=== PATIENT | male | born 1945 | race Caucasian/White ===

== ENCOUNTER → 2021-02-11 | Outpatient (CLI) | payer MEDICARE ==
[~2021-02-11] MED LIST: ATEN100 PO; CEPH500 PO; CLON.5 PO; DICL75ER PO; DILT120 PO; GLIM4 PO; LISI20 PO; METF500 PO; POTCHL20ER PO; TORSE20 PO
== END | disposition home or self-care (01) ==
LOC: LAB SHORT 09:55
DX: D22.4 Melanocytic nevi of scalp and neck (principal); L57.0 Actinic keratosis
CPT/HCPCS: 88305; 88312

== ENCOUNTER 2022-04-23 13:47 | Emergency (ER) | payer MEDICARE ==
[~2022-04-23] VITALS: Ht 180.3 cm; Wt 150.6 kg
[2022-04-23 16:02] LABS: BASOPHILS ABSOLUTE AUTO 0.03 K/mm3 (0.00-0.23); BASOPHILS PERCENT AUTO 1 % (0-2); EOSINOPHILS ABSOLUTE AUTO 0.09 K/mm3 (0.00-0.68); EOSINOPHILS PERCENT AUTO 1 % (0-6); Hematocrit 46.9 % (37.0-53.0); Hemoglobin 16.4 g/dL (13.5-17.5); IMMATURE GRAN ABSOLUTE AUTO 0.03 K/mm3 (0.00-0.10); IMMATURE GRAN PERCENT AUTO 1 % (0-1); LYMPHOCYTES ABSOLUTE AUTO 0.37 K/mm3 (0.84-5.20); LYMPHOCYTES PERCENT AUTO 6 % (21-46); MONOCYTES PERCENT AUTO 6 % (4-13); Mean Corpuscular Volume 91 fL (80-100); Mean Platelet Volume 9.8 fL (9.1-12.4); NEUTROPHILS ABSOLUTE AUTO 5.37 K/mm3 (1.96-9.15); NEUTROPHILS PERCENT AUTO 85 % (41-73); Platelet Count 199 K/mm3 (150-400); RDW Coefficient Variation 14.3 % (11.7-14.2); RDW Standard Deviation 48.5 fL (35.1-46.3); Red Blood Cell Count 5.13 M/mm3 (4.30-5.90); White Blood Cell Count 6.29 K/mm3 (4.00-11.30)
[2022-04-23 16:12] LABS: Albumin, Blood 2.5 g/dL (3.4-5.0); Albumin/Globulin Ratio 0.9 (0.8-1.8); Bilirubin, Total 0.7 mg/dL (0.1-1.0); Bun/Creatinine Ratio 19.4 (12.0-20.0); Calcium, Blood 8.2 mg/dL (8.5-10.1); Creatinine, Blood 0.83 mg/dL (0.60-1.20); Globulin, Blood 2.8 g/dL (2.2-4.0); Potassium, Blood 4.5 mmol/L (3.5-5.5); Total Protein, Blood 5.3 g/dL (6.4-8.2)
[2022-04-23] MEDS ORDERED: CYMBALTA20 M2 PO (19:36)
[2022-04-23] MEDS ORDERED: HYDCHL25 PO (19:37)
[2022-04-23] MEDS ORDERED: ATORVASTATIN CA20 MG PO (19:37)
== END 2022-04-23 19:40 | disposition home or self-care (01) ==
LOC: ER 13:47
PROVIDERS: Physician Assistant
DX: J90 Pleural effusion, not elsewhere classified (principal); I11.0 Hypertensive heart disease with heart failure; I50.9 Heart failure, unspecified; E11.9 Type 2 diabetes mellitus without complications; Z79.899 Other long term (current) drug therapy; Z79.84 Long term (current) use of oral hypoglycemic drugs; Z87.891 Personal history of nicotine dependence
CPT/HCPCS: 36415; 71046; 80053; 83880; 84484; 85025; 93005; 93010; 99284-25

== ENCOUNTER 2023-05-14 09:28 | Inpatient (IN) | payer MEDICARE ==
[2023-05-14] VITALS (8 sets, daily range): BP systolic 103–178; BP diastolic 56–129
[~2023-05-14] VITALS: Ht 180.3 cm; Wt 152.5 kg
[~2023-05-14 09:28] MED LIST changes: +ATORVASTATIN CA20 MG PO; +DULO30 PO; +HYDCHL25 PO
[2023-05-14] MEDS ORDERED: LOSARTAN POTASS25 M2 PO (10:24)
[2023-05-14] MEDS ORDERED: METOPROLOL TART5010 PO (10:24)
[2023-05-14 11:04] LABS: BASOPHILS ABSOLUTE AUTO 0.04 K/mm3 (0.00-0.23); BASOPHILS PERCENT AUTO 0 % (0-2); EOSINOPHILS PERCENT AUTO 0 % (0-6); Hematocrit 54.6 % (37.0-53.0); Hemoglobin 17.8 g/dL (13.5-17.5); IMMATURE GRAN ABSOLUTE AUTO 0.15 K/mm3 (0.00-0.10); IMMATURE GRAN PERCENT AUTO 1 % (0-1); LYMPHOCYTES ABSOLUTE AUTO 0.19 K/mm3 (0.84-5.20); LYMPHOCYTES PERCENT AUTO 1 % (21-46); MONOCYTES ABSOLUTE AUTO 0.48 K/mm3 (0.16-1.47); MONOCYTES PERCENT AUTO 4 % (4-13); Mean Corpuscular HGB 30.3 pg (26.0-34.0); Mean Corpuscular HGB Conc 32.6 g/dL (31.5-36.5); Mean Corpuscular Volume 93 fL (80-100); Mean Platelet Volume 9.4 fL (9.1-12.4); NEUTROPHILS ABSOLUTE AUTO 12.66 K/mm3 (1.96-9.15); NEUTROPHILS PERCENT AUTO 94 % (41-73); Platelet Count 320 K/mm3 (150-400); RDW Coefficient Variation 14.6 % (11.7-14.2); RDW Standard Deviation 50.3 fL (35.1-46.3); Red Blood Cell Count 5.87 M/mm3 (4.30-5.90); White Blood Cell Count 13.52 K/mm3 (4.00-11.30)
[2023-05-14 11:31] LABS: Albumin, Blood 2.3 g/dL (3.4-5.0); Albumin/Globulin Ratio 0.7 (0.8-1.8); Bilirubin, Total 0.7 mg/dL (0.1-1.0); Bun/Creatinine Ratio 39.4 (12.0-20.0); Calcium, Blood 8.6 mg/dL (8.5-10.1); Creatinine, Blood 0.76 mg/dL (0.60-1.20); Globulin, Blood 3.4 g/dL (2.2-4.0); Potassium, Blood 4.4 mmol/L (3.5-5.5); Total Protein, Blood 5.7 g/dL (6.4-8.2)
[2023-05-14 20:12] LABS: Influenza A, PCR NEGATIVE (NEGATIVE); Influenza B, PCR NEGATIVE (NEGATIVE); Resp Syncytial Virus, PCR NEGATIVE (NEGATIVE); SARS-Cov-2 (COVID-19) PCR, MMC NEGATIVE (NEGATIVE)
--- NOTE | 2023-05-14 20:48 | NUR ---
PHYSICIAN COMMUNICATION SPOKE WITH DR FARMER TO NOTIFY HER THAT THE PATIENT IS REQUIRING A POWER GLIDE IN ORDER TO BE ABLE TO OBTAIN LAB DRAWS PATIENT IS TOO EDEMATOUS FOR THE BARREL CENTERER TO DRAW HIM. INFORMED HER THAT THE PATIENT HAS SEVERE BACK PAIN WHEN LYING FLAT WHICH IS REQUIRED FOR THE PROCEDURE AND ASKED FOR ONE TIME MEDICATION TO HELP HIM BE MORE COMFORTABLE FOR IT. DR FARMER ORDERED A ONE TIME DOSE OF 50 MCG IV FENTANYL AND TO ADMINISTER ZOFRAN AND IF THE PATIENT IS STILL UNCOMFORTABLE ADMINISTER AN ADDITIONAL 25 MCG IV FENTANYL.
[2023-05-14 22:12] LABS: Base Excess Venous 3.7 mmol/L; Bicarbonate Venous 25.4 mmol/L (24.0-30.0); PCO2 Venous 68.8 mmHg (38-42); pH Blood Venous 7.26 (7.34-7.37)
--- NOTE | 2023-05-14 22:22 | NUR ---
PHYSICIAN COMMUNICATION CONTACTED DR FARMER TO NOTIFY HER THAT THE PH ON PATIENT'S VBG IS CRITICALLY LOW AND THAT HIS CO2 IS HIGH AT 68.8. RELAYED THAT THE RESPIRATORY THERAPIST RECOMMENDED PLACING THE PATIENT ON BIPAP AND DR FARMER AGREED. PATIENT BEING PLACED ON BIPAP NOW. WILL CONTINUE TO MONITOR.
[2023-05-14] MEDS ORDERED: ATOR40TA PO (22:30)
[2023-05-14] MEDS ORDERED: ASPI81CH PO (22:30)
[2023-05-15] VITALS (7 sets, daily range): BP systolic 108–144; BP diastolic 56–81
[2023-05-15 05:08] LABS: Hematocrit 45.1 % (37.0-53.0); Hemoglobin 14.4 g/dL (13.5-17.5); Mean Corpuscular HGB 30.8 pg (26.0-34.0); Mean Corpuscular HGB Conc 31.9 g/dL (31.5-36.5); Mean Corpuscular Volume 97 fL (80-100); Mean Platelet Volume 9.8 fL (9.1-12.4); Platelet Count 251 K/mm3 (150-400); RDW Coefficient Variation 14.9 % (11.7-14.2); RDW Standard Deviation 52.9 fL (35.1-46.3); Red Blood Cell Count 4.67 M/mm3 (4.30-5.90); White Blood Cell Count 12.86 K/mm3 (4.00-11.30)
[2023-05-15 05:59] LABS: Bun/Creatinine Ratio 32.1 (12.0-20.0); Calcium, Blood 8.1 mg/dL (8.5-10.1); Creatinine, Blood 0.87 mg/dL (0.60-1.20); Magnesium, Blood 1.9 mg/dL (1.6-2.4); Potassium, Blood 3.8 mmol/L (3.5-5.5)
--- NOTE | 2023-05-15 06:31 | NUR ---
SHIFT SUMMARY PATIENT ALERT AND ORIENTED X4. PATIENT'S MOBILITY IS LIMITED CURRENTLY DUE TO GENERALIZED 4+ EDEMA, HIS LEGS ARE TIGHT AND WEEPING WITH BLISTERING NOTED, PICTURES PLACED IN THE CHART. PATIENT IS TOLERATING THE BIPAP WELL, SETTINGS 18/10 WITH 11 LITER BLEED. VITAL SIGNS STABLE, AFIB IN THE 80'S ON TELE. WILL CONTINUE TO MONITOR. CALL LIGHT WITHIN REACH.
--- NOTE | 2023-05-15 12:06 | NUR ---
UPDATE PT MORE DROWSY AND CONFUSED THIS AFTERNOON. PT PLACED ON BIPAP WITH SATS >90%. WILL KEEP PATIENT ON BIPAP UNTIL MENTATION IMPROVES. WILL CONTINUE TO MONITOR CLOSELY
--- NOTE | 2023-05-15 15:42 | NUR ---
UPDATE PT MORE AWAKE AND ALERT AFTER BEING ON BIPAP. PT ANSWERING ORIENTATION QUESTIONS APPROPRIATELY. VS STABLE. PHYSICAL THERAPY IN TO WORK WITH PATIENT. WILL CONTINUE TO MONITOR CLOSELY
--- NOTE | 2023-05-15 18:15 | NUR ---
SHIFT SUMMARY PT REMAINS ALERT AND ORIENTED THIS EVENING. BP STABLE. HR REMAINS AFIB 70'S. PT ON 4L NC SINCE PREVIOUS NOTE WITH SATS ABOVE 90%. CRACKLES STILL HEARD IN LUNG BASES. PT CONTINUES TO COMPLAIN OF BACK PAIN ON AND OFF THROUGHOUT SHIFT. PT REPOSITIONED FOR COMFORT NEEDED. PT MEDICATED PER EMAR FOR PAIN. PT IS EDEMATOUS THROUGHOUT. BED BATH PROVIDED THIS SHIFT. PT ABLE TO USE THE URINAL AT TIMES, AND INCONTINENT AT OTHER TIMES. SKIN TEAR NOTED TO PT'S LEFT GLUTEAL FOLD AND STATES THAT HAS BEEN THERE FOR A WHILE. BARRIER CREAM APPLIED TO SCROTOM FOR EXCORIATION. WILL CONTINUE TO MONITOR AND REPORT TO ONCOMING RN. CALL LIGHT IN REACH. PT ABLE TO COMMUNICATE NEEDS
--- NOTE | 2023-05-15 22:41 | NUR ---
TELE CHANGES CALL FROM [employer] A LITTLE AFTER 2199 THAT PT HAD A 5 BEAT RUN OF VTACH ON TELE. PT RESTING IN BED AND ASYMPTOMATIC. NOTIFIED EXTENSION SERVICE ADVISOR, PER DISCUSSION WITH EXTENSION SERVICE ADVISOR HE STATES NO INTERVENTIONS NEEDED AT THIS TIME UNLESS THEY CONTINUE.
--- NOTE | 2023-05-16 00:16 | NUR ---
REPORT GIVEN TO NIKOLAS FOR TO ASSUME CARE OF PT AT THIS TIME. PT RESTING IN BED, CALL LIGHT WITHIN REACH.
[2023-05-16 03:13] VITALS: BP 143/116
[2023-05-16 04:37] LABS: BASOPHILS ABSOLUTE AUTO 0.02 K/mm3 (0.00-0.23); BASOPHILS PERCENT AUTO 0 % (0-2); EOSINOPHILS ABSOLUTE AUTO 0.04 K/mm3 (0.00-0.68); EOSINOPHILS PERCENT AUTO 0 % (0-6); Hematocrit 44.9 % (37.0-53.0); Hemoglobin 14.2 g/dL (13.5-17.5); IMMATURE GRAN ABSOLUTE AUTO 0.08 K/mm3 (0.00-0.10); IMMATURE GRAN PERCENT AUTO 1 % (0-1); LYMPHOCYTES PERCENT AUTO 2 % (21-46); MONOCYTES ABSOLUTE AUTO 0.54 K/mm3 (0.16-1.47); MONOCYTES PERCENT AUTO 6 % (4-13); Mean Corpuscular HGB 30.8 pg (26.0-34.0); Mean Corpuscular HGB Conc 31.6 g/dL (31.5-36.5); Mean Corpuscular Volume 97 fL (80-100); Mean Platelet Volume 9.4 fL (9.1-12.4); NEUTROPHILS PERCENT AUTO 91 % (41-73); Platelet Count 220 K/mm3 (150-400); RDW Coefficient Variation 14.8 % (11.7-14.2); RDW Standard Deviation 53.1 fL (35.1-46.3); Red Blood Cell Count 4.61 M/mm3 (4.30-5.90); White Blood Cell Count 9.48 K/mm3 (4.00-11.30)
[2023-05-16 05:05] LABS: Bun/Creatinine Ratio 34.2 (12.0-20.0); Calcium, Blood 8.1 mg/dL (8.5-10.1); Creatinine, Blood 0.96 mg/dL (0.60-1.20); Free Thyroxine 0.63 ng/dL (0.70-1.60); Magnesium, Blood 1.9 mg/dL (1.6-2.4); Potassium, Blood 4.3 mmol/L (3.5-5.5); Thyroid Stimulating Hormone 1.27 uIU/mL (0.360-4.800)
--- NOTE | 2023-05-16 05:29 | NUR ---
shift summary No acute changes this shift. Pt a&ox4. sp02>90% on 3l NC. Pt refused cpap while sleeping. Telemetry shows afib, hr mostly 80's, vss. HTN noted. Diuresing. Pt constantly asking for water/diet sprite. Educated pt on why we are diuresing. Pt states he "pees more when he drinks diet sprite". Incontinent voids this shift, attends c/d/i. No bm this shift. Pt repositioned q2h. Pt bue edema, elevated on pillows. Difficult to get lab draw, powerglide not drawing. C/O of back pain, medicated w/ tylenol per emar. Call light in reach.
[2023-05-16 07:45] VITALS: BP 133/72
[2023-05-16 15:17] VITALS: BP 139/73
--- NOTE | 2023-05-16 16:50 | NUR ---
SHIFT SUMMARY PT REMAINS ALERT AND ORIENTED. PT TITRATED TO 2L NC WITH SATS >90%. PT HAS BEEN OFF OF BIPAP ALL SHIFT. HR HAS BEEN AFIB 70'S. PT COMPLAINS OF BACK AND NECK PAIN ON AND OFF, MOSTLY WITH REPOSITIONING. PT REPOSITIONED FOR COMFORT NEEDED AND MEDICATED PER EMAR. PT VOIDING FREQUENTLY THIS SHIFT USING THE URINAL AND SOME OCCASIONAL INCONTINENCE. PT UP TO THE RECLINER VIA LIFT THIS AFTERNOON AND ALL EXTREMITIES ELEVATED ON PILLOWS TO HELP WITH EDEMA. PT EDUCATED ON DECREASING HIS WATER INTAKE TO HELP WITH DIURESIS. WILL CONTINUE TO MONITOR AND REPORT TO ONCOMING RN. CALL LIGHT IN REACH
[2023-05-16 19:21] VITALS: BP 153/94
--- NOTE | 2023-05-16 21:40 | NUR ---
TRANSFER NOTE CALLED REPORT TO [facility] SUSAN JORGENSEN ~2137. ALL QUESTIONS ANSWERED. ALL PT PERSONAL BELONGINGS BAGGED UP AND TRANSFERRED WITH PT. RAFAELA BENITEZ UPON TRANSFER.
[2023-05-16 21:51] VITALS: BP 141/80
[2023-05-16 22:14] VITALS: BP 113/69
--- NOTE | 2023-05-16 22:16 | NUR ---
ASSUMED CARE OF PT AT 2207. PT CAME TO ROOM 311 VIA BED AND WAS ORIENTED TO ROOM, UNIT, AND CALL LIGHT. PT EDUCATED REMOTE COMPUTER TERMINAL OPERATOR LIGHT AND FALL PRECAUTIONS. PT EDUCATED ON SMOKING POLICY. NO COMPLAINTS OF PAIN, PT ASKED TO CONTACT REGARDING ROOM CHANGE. ASSISTED PT IN CONTACTING SPOUSE VIA PERSONAL IPAD.
--- NOTE | 2023-05-17 04:36 | NUR ---
SUPERVISOR COIL WINDING SUMMARY PT A&OX4 AND ANSWERS QUESTIONS APPROPRIATELY. PT ARRIVED ON UNIT AND WAS ORIENTED TO ROOM. PT CONTINENT AND CALLS APPROPRIATELY. PT EXTREMITIES AND PENIS EXPERIENCING EDEMA AND FLUID OVERLOAD. PT ON SCHEDULED DIURETICS. PT SLEPT ON AND OFF THROUGHOUT THE SHIFT. NO COMPLAINTS OF CP OR SOB. PT MEDICATED FOR PAIN WHEN PT VERBALIZED PAIN. PT VSS. NO ACUTE EVENTS OCCURED DURING SHIFT. PT KEPT IN A POSITION OF SAFETY WITH APPROPRIATE FALL PRECAUTIONS IN PLACE AND CALL LIGHT IN REACH.
[2023-05-17 04:53] LABS: Base Excess Venous 7.7 mmol/L; Bicarbonate Venous 31.1 mmol/L (24.0-30.0); PCO2 Venous 36.2 mmHg (38-42); pH Blood Venous 7.53 (7.34-7.37)
[2023-05-17 04:55] LABS: BASOPHILS ABSOLUTE AUTO 0.02 K/mm3 (0.00-0.23); BASOPHILS PERCENT AUTO 0 % (0-2); EOSINOPHILS ABSOLUTE AUTO 0.07 K/mm3 (0.00-0.68); EOSINOPHILS PERCENT AUTO 1 % (0-6); Hematocrit 42.6 % (37.0-53.0); Hemoglobin 14.1 g/dL (13.5-17.5); IMMATURE GRAN ABSOLUTE AUTO 0.04 K/mm3 (0.00-0.10); IMMATURE GRAN PERCENT AUTO 1 % (0-1); LYMPHOCYTES ABSOLUTE AUTO 0.24 K/mm3 (0.84-5.20); LYMPHOCYTES PERCENT AUTO 3 % (21-46); MONOCYTES ABSOLUTE AUTO 0.75 K/mm3 (0.16-1.47); MONOCYTES PERCENT AUTO 10 % (4-13); Mean Corpuscular HGB 31.2 pg (26.0-34.0); Mean Corpuscular HGB Conc 33.1 g/dL (31.5-36.5); Mean Corpuscular Volume 94 fL (80-100); Mean Platelet Volume 9.6 fL (9.1-12.4); NEUTROPHILS ABSOLUTE AUTO 6.67 K/mm3 (1.96-9.15); NEUTROPHILS PERCENT AUTO 86 % (41-73); Platelet Count 206 K/mm3 (150-400); RDW Coefficient Variation 14.4 % (11.7-14.2); RDW Standard Deviation 49.8 fL (35.1-46.3); Red Blood Cell Count 4.52 M/mm3 (4.30-5.90); White Blood Cell Count 7.79 K/mm3 (4.00-11.30)
[2023-05-17 05:31] VITALS: BP 166/113
[2023-05-17 05:39] LABS: Bun/Creatinine Ratio 39.4 (12.0-20.0); Calcium, Blood 7.7 mg/dL (8.5-10.1); Creatinine, Blood 0.81 mg/dL (0.60-1.20); Potassium, Blood 3.9 mmol/L (3.5-5.5)
[2023-05-17 08:02] VITALS: BP 150/86
[2023-05-17 16:09] VITALS: BP 137/73
--- NOTE | 2023-05-17 19:22 | NUR ---
SHIFT SUMMARY; PATIENT REMAINS ON BEDSDREST DURING DAY. HE IS AO X 4. CALLS OFTEN AND USES CALL LIGHT APPROPRIATELY. ATTEMPT TO PLACE CHANG CATHETER UNSUCCESSFUL. PATIENT ASKS URINAL TO BE HELD FOR HIM. PATIENT HAS COMPLETE BED CHANGE THIS EVENING PRIOR TO SHIFT CHANGE. SCROTUM IS NOTED TO HAVE SORE AREAS WITH SCANT AMOUNT OF BLEEDING NOTED. PENIS IS SWOLLEN AND RED. PATIENT DOES COMPLAIN OF PAIN WHEN TURNING AND PANICS WHEN HE IS LAYED BACK TO ROLL WHEN HE IS REPOSITIONED OR BEDDING IS CHANGED.
--- NOTE | 2023-05-17 20:15 | NUR ---
CALL PLACED TO PT DAUGHTER, UPDATED ON PT CONDITION.
[2023-05-17 20:55] VITALS: BP 156/103
[2023-05-18 02:34] VITALS: BP 158/79
--- NOTE | 2023-05-18 04:25 | NUR ---
SHIFT SUMMARY PT A&OX3-4 AND ANSWERS QUESTIONS APPROPRIATELY. PT PLACED ON A PUREWICK AT START OF SHIFT DUE TO FAILED CHANG PLACEMENT AND SKIN BREAKDOWN PREVENTION. PT LOWER EXTREMITIES DRY AND FLAKING, LOTION APPLIED. PT VERBALIZED PAIN DUE TO ACCIDENTAL CHANG REMOVAL, PERCOCET 5/[address] AND PAIN SUCCESSFULLY MANAGED. PT HAD SLEEP STUDY DURING LIQUOR BLENDER. VSS. NO ACUTE EVENTS AT THIS TIME. NO COMPLAINTS OF CHEST PAIN OR SOB. PT LEFT IN A POSITION OF SAFETY WITH PROPER FALL PRECAUTIONS IN PLACE AND CALL LIGHT IN REACH.
[2023-05-18 06:27] LABS: Bun/Creatinine Ratio 38.4 (12.0-20.0); Calcium, Blood 7.7 mg/dL (8.5-10.1); Creatinine, Blood 0.73 mg/dL (0.60-1.20)
[2023-05-18 07:47] VITALS: BP 176/76
[2023-05-18 14:05] LABS: Source, Urine Foley catheter
[2023-05-18 14:16] LABS: Appearance, Urine Clear (Clear); Bilirubin, Urine Neg (Neg); Blood, Urine Neg (Neg); Color, Urine Yellow (P-Yellow); Glucose Qualitative, Urine Neg (Neg); Ketones, Urine Neg (Neg); Leukocyte Esterase, Urine Neg (Neg); Nitrite, Urine Neg (Neg); Protein, Urine Neg (Neg); Specific Gravity, Urine 1.015 (1.003-1.022); Urobilinogen, Urine NORM (Normal)
--- NOTE | 2023-05-18 14:30 | NUR ---
MEDICATION LIST RECEIVED FROM [employer]. MED RECONCILIATION COMPLETED.
[2023-05-18 17:00] VITALS: BP 148/98
[2023-05-18 19:36] VITALS: BP 156/96
--- NOTE | 2023-05-18 19:40 | NUR ---
SHIFT SUMMARY: PT A/O X 2, LIFT PT. PT HAS SEVERE EDEMA THROUGHOUT. BLADDER SCAN TODAY REVEALED AMOUNT OF 361. DR. NERI ORDERED CHANG INSERTION FOR RETENTION. IT WAS DIFFICULT TO PLACE BUT MANAGED WITH COUDE. PT HAD A PURWICK IN PLACE PRIOR WHICH WAS NOT WORKING WELL AND LEAKED AROUND SO UNABLE TO DOCUMENT ACCURATE OUTPUT TODAY. PLACED ORDER FOR PT TO BE A DAILY WEIGHT. PT PAIN NOT MANAGED WITH TYLENOL SO OXYCODONE GIVEN FOR PAIN AND PT TOLERATED WELL AND WAS ABLE TO BE REPOSITIONED. PT HAS SKIN TEAR TO BOTTOM. PICTURES TAKEN AND PLACED ON CHART.
--- NOTE | 2023-05-19 04:39 | NUR ---
SHIFT SUMMARY 77 YR M ADMITTED ON 05/14/23. DNR. NO ACUTE CHANGES THIS SHIFT. PT WAS TRANSFERED TO A BARIATRIC BED USING A SLIDE SHEET RATHER THAN A LIFT. HE WAS PREMEDICATED W/ OXY BEFORE BEING MOVED, AND TOLERATED IT WELL, ALTHOUGH IT WAS STILL PAINFUL FOR HIM TO BE MOVED. HE APPEARS TO BE MUCH MORE COMFORTABLE IN THE LARGER BED. CHANG IS PATENT AND DRAINING YELLOW URINE TO GRAVITY. PT IS HOPEFUL HE WILL TRANSFER TO A SKILLED CARE FACILITY TODAY. HE TENDS TO BE CONFUSED WHEN HE FIRST WAKES UP BUT AFTER A FEW MINUTES HIS THOUGHTS SEEM TO CLEAR.
[2023-05-19 04:49] VITALS: BP 184/101
[2023-05-19 07:52] VITALS: BP 143/81
[2023-05-19 10:57] LABS: Influenza A, PCR NEGATIVE (NEGATIVE); Influenza B, PCR NEGATIVE (NEGATIVE); Resp Syncytial Virus, PCR NEGATIVE (NEGATIVE); SARS-Cov-2 (COVID-19) PCR, MMC NEGATIVE (NEGATIVE)
[2023-05-19] MEDS ORDERED: FURO80 PO (11:02)
[2023-05-19] MEDS ORDERED: LEVSOD75 PO (11:04)
[2023-05-19] MEDS ORDERED: SPIR25 PO (11:04)
--- NOTE | 2023-05-19 15:53 | NUR ---
PT TO [facility] VIA GURNEY TRANSPORT. PIV & PG DC'D WITH CATH TIPS INTACT, NO REDNESS OR SWELLING NOTED. F/C TO REMAIN. PT MEDICATED FOR PAIN PER EMAR PRIOR TO TRANSFER. LIFT USED TO PLACE PT ON [facility]. ATTEMPTED TO CALL REPORT TO [facility], WAS LEFT ON HOLD. WILL TRY AGAIN. DC PKT FOR [facility] STAFF GIVEN TO TRANSPORT PERSONNEL. PT SENT WITH ALL PERSONAL BELONGINGS. & DTR HERE FOR TRANSFER.
--- NOTE | 2023-05-19 16:17 | NUR ---
REPORT GIVEN TO PEREZ DAVIS AT [facility].
== END 2023-05-19 15:25 | DRG 291 ==
LOC: ER 09:28 → ERHOLD 14:43 → MEDS 14:43 → PCU 19:11 → MEDS 05-16 22:08
PROVIDERS: Internal Medicine; Nurse Practitioner Acute Care; Student in an Organized Health Care Education/Training Program; ADMIT Hospitalist
PROC: 5A0935A Assistance with Respiratory Ventilation, Less than 24 Consecutive Hours, High Flow/Velocity Cannula (ICD-10-PCS; principal; 2023-05-14)
PROC: 0T9B70Z Drainage of Bladder with Drainage Device, Via Natural or Artificial Opening (ICD-10-PCS; 2023-05-18)
DX: I11.0 Hypertensive heart disease with heart failure (principal); I50.33 Acute on chronic diastolic (congestive) heart failure; J96.21 Acute and chronic respiratory failure with hypoxia; J96.22 Acute and chronic respiratory failure with hypercapnia; I48.20 Chronic atrial fibrillation, unspecified; Z68.44 Body mass index [BMI] 60.0-69.9, adult; L03.115 Cellulitis of right lower limb; Z66 Do not resuscitate; E11.51 Type 2 diabetes mellitus with diabetic peripheral angiopathy without gangrene; E78.5 Hyperlipidemia, unspecified; F32.A Depression, unspecified; G47.30 Sleep apnea, unspecified; I87.2 Venous insufficiency (chronic) (peripheral); E66.01 Morbid (severe) obesity due to excess calories; T50.1X6A Underdosing of loop [high-ceiling] diuretics, initial encounter; R33.9 Retention of urine, unspecified; Z91.138 Patient's unintentional underdosing of medication regimen for other reason; Z74.09 Other reduced mobility; Z11.52 Encounter for screening for COVID-19; Z88.2 Allergy status to sulfonamides; Z79.84 Long term (current) use of oral hypoglycemic drugs; Z98.1 Arthrodesis status; Z87.891 Personal history of nicotine dependence
CPT/HCPCS: 0241U; 36415; 71045; 73630; 80048; 80053; 81003; 82803; 82947; 83735; 83880; 84145; 84146; 84439; 84443; 85025; 85027; 85651; 86140; 93005; 93010; 93306; 94660; 94762; 96365; 96375; 97110; 97112; 97163; 99285-25; A9270; J0690; J0696; J1120; J1650; J1940; J2405; J3010; J7050